=== PATIENT | female | born 1975 | race American Indian/Alaskan Native ===

== ENCOUNTER 2017-05-12 03:16 | Emergency (ER) | payer OTHER ==
[2017-05-12] MEDS ORDERED: NACL 0.9% 1000 ML 1,000 ML IV ONE ×2 (12:34→13:27)
[2017-05-12] MEDS ORDERED: NACL 0.9% 1000 ML 1,000 ML ONE (12:43)
[2017-05-12 13:26] LABS: Basophils % (Auto) 0.3 % (0.0-1.8); Eosinophils % (Auto) 0.7 % (0.0-4.3); Hematocrit 41.3 % (30.3-42.9); Hemoglobin 13.9 gm/dl (10.1-14.3); Lymphocytes # (Auto) 0.9 K/mm3 (1.2-5.4); Lymphocytes % (Auto) 15.7 % (13.4-35.0); Mean Corpuscular HGB Conc 34 % (30-34); Mean Corpuscular Hemoglobin 31 pg (28-32); Mean Corpuscular Volume 93 fl (79-97); Monocytes # (Auto) 0.2 K/mm3 (0.0-0.8); Platelet Count 223 K/mm3 (140-440); Red Blood Count 4.47 M/mm3 (3.65-5.03); Red Cell Distribution Width 15.4 % (13.2-15.2)
[2017-05-12] MEDS ORDERED: MORPHINE IV ONE (13:27)
[2017-05-12] MEDS ORDERED: ZOFRAN IV ONE (13:27)
--- NOTE | 2017-05-12 13:33 | Emergency Department Report ---
ED Abdominal Pain HPI - General Chief Complaint: Abdominal Pain Stated Complaint: ABD PAIN Time Seen by Provider: 05/12/17 12:25 Source: patient Mode of arrival: Ambulatory Limitations: No Limitations - History of Present Illness Initial Comments: 41-year-old female with a past medical history of hypertension, hypothyroidism, ovarian cyst, and partial hysterectomy presents with complaints of crampy and sharp abdominal pain yesterday at noon. Pain caused her to double over and break out in a sweat. Pain seemed to subside until returning in the evening time after attempting to drink soup. Positive nausea with severe pain episodes without vomiting. No complaints of fever. Pain is continued to wax and wane while waiting in the ED to be evaluated. Severity scale (0 -10): 0 - Related Data Previous Rx's Medication Instructions Recorded Last Taken Type HYDROcodone/APAP 5-325 [Cypress 1 each PO ONCE #20 tablet 05/12/17 Unknown Rx 5-325 mg TAB] Nitrofurantoin Ma[place]/M-Cryst 100 mg PO Q12HR #10 capsule 05/12/17 Unknown Rx [Macrobid CAP] Ondansetron [Zofran Odt] 4 mg PO Q8HR PRN #20 tab.rapdis 05/12/17 Unknown Rx Allergies Allergy/AdvReac Type Severity Reaction Status Date / Time tetracycline Allergy Hives Verified 05/12/17 05:27 ED Review of Systems ROS: Stated complaint: ABD PAIN Other details as noted in HPI Comment: All other systems reviewed and negative Other: Constitutional: No fevers chills Eyes: No eye pain visual changes ENT: No ear pain or throat pain Neck: Denies pain Respiratory: Denies cough wheezing shortness of breath Cardiovascular: Denies chest pain, palpitations, syncope GI: as per hpi : Denies dysuria Musculoskeletal: Denies back pain, joint swelling Skin: Denies rash, lesions, erythema Neurologic: Denies headache, numbness, weakness Psychiatric: Denies suicidal ideation, hallucinations ED Past Medical Hx - Past Medical History Previous Medical History?: No Hx Hypertension: Yes Additional medical history: h/o ovarian cysts. Hypothyroidism - Surgical History Past Surgical History?: Yes Additional Surgical History: partial hysterectomy, ? - Social History Smoking Status: Never Smoker Substance Use Type: None - Medications Home Medications: Home Medications Medication Instructions Recorded Confirmed Last Taken Type HYDROcodone/APAP 5-325 [Cypress 1 each PO ONCE #20 tablet 05/12/17 Unknown Rx 5-325 mg TAB] Nitrofurantoin Ma[place]/M-Cryst 100 mg PO Q12HR #10 capsule 05/12/17 Unknown Rx [Macrobid CAP] Ondansetron [Zofran Odt] 4 mg PO Q8HR PRN #20 tab.rapdis 05/12/17 Unknown Rx ED Physical Exam - General Limitations: No Limitations - Other Other exam information: General: No limitations, patient is alert in no acute distress Head exam: Atraumatic, normocephalic Eyes exam: Normal appearance, nonicteric sclera ENT: Moist mucous membrane, normal oropharynx Neck exam: Normal inspection, full range of motion, no meningismus nontender Respiratory exam: Clear to auscultation bilateral, no wheezes, rales, crackles Cardiovascular: Normal rate and rhythm, normal heart sounds Abdomen: Soft, nondistended, mild upper abdominal tenderness on exam. Normal bowel sounds. No rebound or guarding Extremity: Full range of motion normal inspection no deformity Back: Normal Inspection, full range of motion, no tenderness Neurologic: Alert, oriented x3, cranial nerves intact, no motor or sensory deficit Psychiatric: normal affect, normal mood Skin: Warm, dry, intact ED Course Vital Signs 05/12/17 05/12/17 05/12/17 05:19 12:17 12:31 Temperature 98.9 F Pulse Rate 94 H 111 H 106 H Respiratory 18 12 24 Rate Blood Pressure 162/127 144/104 O2 Sat by Pulse 99 96 Oximetry 05/12/17 05/12/17 05/12/17 13:01 13:31 14:00 Temperature Pulse Rate 107 H Respiratory 12 14 12 Rate Blood Pressure 144/104 144/104 118/78 O2 Sat by Pulse 97 96 93 Oximetry - Consultations Consultation #1: 05/12/[address] Mcneal. Outpatient follow-up encouraged to do LFT elevation ED Medical Decision Making - Lab Data Result diagrams: 05/12/17 12:29 05/12/17 12:29 Lab Results 05/12/17 05/12/17 05/12/17 Range/Units 12:29 12:29 12:30 WBC 5.9 (4.5-11.0) K/mm3 RBC 4.47 (3.65-5.03) M/mm3 Hgb 13.9 (10.1-14.3) gm/dl Hct 41.3 (30.3-42.9) % MCV 93 (79-97) fl MCH 31 (28-32) pg MCHC 34 (30-34) % RDW 15.4 H (13.2-15.2) % Plt Count 223 (140-440) K/mm3 Lymph % (Auto) 15.7 (13.4-35.0) % Maverick % (Auto) 4.0 (0.0-7.3) % Eos % (Auto) 0.7 (0.0-4.3) % Baso % (Auto) 0.3 (0.0-1.8) % Lymph # 0.9 L (1.2-5.4) K/mm3 Maverick # 0.2 (0.0-0.8) K/mm3 Eos # 0.0 (0.0-0.4) K/mm3 Baso # 0.0 (0.0-0.1) K/mm3 Seg Neutrophils % 79.3 H (40.0-70.0) % Seg Neutrophils # 4.7 (1.8-7.7) K/mm3 Sodium 139 (137-145) mmol/L Potassium 3.6 (3.6-5.0) mmol/L Chloride 99.1 (98-107) mmol/L Carbon Dioxide 27 (22-30) mmol/L Anion Gap 17 mmol/L BUN 10 (7-17) mg/dL Creatinine 0.7 (0.7-1.2) mg/dL Estimated GFR > 60 ml/min BUN/Creatinine Ratio 14 % Glucose 140 H (65-100) mg/dL Calcium 9.0 (8.4-10.2) mg/dL Total Bilirubin 0.70 (0.1-1.2) mg/dL AST 501 H (5-40) units/L ALT 673 H (7-56) units/L Alkaline Phosphatase 124 (35-129) units/L Total Protein 7.3 (6.3-8.2) g/dL Albumin 4.4 (3.9-5) g/dL Albumin/Globulin Ratio 1.5 % Lipase (13-60) units/L Urine Color K[place] (Yellow) Urine Turbidity Clear (Clear) Urine pH 5.0 (5.0-7.0) Ur Specific [place] 1.029 (1.003-1.030) Urine Protein 100 mg/dl (Negative) mg/dL Urine Glucose (UA) Neg (Negative) mg/dL Urine Ketones Tr (Negative) mg/dL Urine Blood Neg (Negative) Urine Nitrite Neg (Negative) Urine Bilirubin Neg (Negative) Urine Urobilinogen 2.0 (<2.0) mg/dL Ur Leukocyte Esterase Tr (Negative) Urine WBC (Auto) 21.0 H (0.0-6.0) /HPF Urine RBC (Auto) 22.0 (0.0-6.0) /HPF U Epithel Cells (Auto) 27.0 H (0-13.0) /HPF Urine Bacteria (Auto) 1+ (Negative) /HPF Urine Mucus 3+ /HPF Hepatitis A IgM Ab (NonReactive) Hep Bs Antigen (Negative) Hep B Core IgM Ab (NonReactive) Hepatitis C Antibody (NonReactive) 05/12/17 05/12/17 Range/Units 13:28 Unknown WBC (4.5-11.0) K/mm3 RBC (3.65-5.03) M/mm3 Hgb (10.1-14.3) gm/dl Hct (30.3-42.9) % MCV (79-97) fl MCH (28-32) pg MCHC (30-34) % RDW (13.2-15.2) % Plt Count (140-440) K/mm3 Lymph % (Auto) (13.4-35.0) % Maverick % (Auto) (0.0-7.3) % Eos % (Auto) (0.0-4.3) % Baso % (Auto) (0.0-1.8) % Lymph # (1.2-5.4) K/mm3 Ma[place]ick # (0.0-0.8) K/mm3 Eos # (0.0-0.4) K/mm3 Baso # (0.0-0.1) K/mm3 Seg Neutrophils % (40.0-70.0) % Seg Neutrophils # (1.8-7.7) K/mm3 Sodium (137-145) mmol/L Potassium (3.6-5.0) mmol/L Chloride (98-107) mmol/L Carbon Dioxide (22-30) mmol/L Anion Gap mmol/L BUN (7-17) mg/dL Creatinine (0.7-1.2) mg/dL Estimated GFR ml/min BUN/Creatinine Ratio % Glucose (65-100) mg/dL Calcium (8.4-10.2) mg/dL Total Bilirubin (0.1-1.2) mg/dL AST (5-40) units/L ALT (7-56) units/L Alkaline Phosphatase (35-129) units/L Total Protein (6.3-8.2) g/dL Albumin (3.9-5) g/dL Albumin/Globulin Ratio % Lipase 23 (13-60) units/L Urine Color (Yellow) Urine Turbidity (Clear) Urine pH (5.0-7.0) Ur Specific [place] (1.003-1.030) Urine Protein (Negative) mg/dL Urine Glucose (UA) (Negative) mg/dL Urine Ketones (Negative) mg/dL Urine Blood (Negative) Urine Nitrite (Negative) Urine Bilirubin (Negative) Urine Urobilinogen (<2.0) mg/dL Ur Leukocyte Esterase (Negative) Urine WBC (Auto) (0.0-6.0) /HPF Urine RBC (Auto) (0.0-6.0) /HPF U Epithel Cells (Auto) (0-13.0) /HPF Urine Bacteria (Auto) (Negative) /HPF Urine Mucus /HPF Hepatitis A IgM Ab Non-reactive (NonReactive) Hep Bs Antigen Non-reactive (Negative) Hep B Core IgM Ab Non-reactive (NonReactive) Hepatitis C Antibody Non-reactive (NonReactive) - Radiology Data Radiology results: report reviewed CT abd and pelvis IV contrast: Fatty liver, mild rotation of the right kidney. Probable bilateral renal cysts. Suspected fibroid uterus. No acute bowel findings. - Medical Decision Making Pain improved with ED treatment. Discharge home on pain medication and nausea medication. No acute findings on CT. Incidental fatty liver. Follow-up with GI will be recommended. Urine WBC count increase in a lot of epithelial cells so likely a contaminant. pt patient will be covered with Macrobid. - Differential Diagnosis pancreatitis, biliary colic, diverticulitis, renal colic Critical Care Time: No Critical care attestation.: If time is entered above; I have spent that time in minutes in the direct care of this critically ill patient, excluding procedure time. ED Disposition Clinical Impression: Abdominal pain, LFT elevation, Fatty liver, Urine WBC increased Disposition: DC-01 TO HOME OR SELFCARE Is pt being admited?: No Does the pt Need Aspirin: No Condition: Stable Instructions: Abdominal Pain (ED), Non-Alcoholic Fatty Liver Disease (ED), Urinary Tract Infection in Women (ED) Additional Instructions: Take the medication as needed for pain. Follow up with a GI doctor or your primary care doctor. Return if symptoms worsen. Prescriptions: HYDROcodone/APAP 5-325 [Cypress 5-325 mg TAB] 1 each PO ONCE #20 tablet Nitrofurantoin Ma[place]ick/M-Cryst [Macrobid CAP] 100 mg PO Q12HR #10 capsule Ondansetron [Zofran Odt] 4 mg PO Q8HR PRN #20 tab.rapdis PRN Reason: Nausea And Vomiting Referrals: ABY MALIK MD [Primary Care Provider] - 3-5 Days ARNOLDO MCNEAL MD [Staff Physician] - 2-3 Days () Time of Disposition: 16:04
[2017-05-12 13:41] LABS: Alanine Aminotransferase 673 units/L (7-56); Albumin 4.4 g/dL (3.9-5); BUN/Creatinine Ratio 14; Blood Urea Nitrogen 10 mg/dL (7-17); Hemolysis Index 6
[2017-05-12 14:08] LABS: Bacteria,Urine 1+ /HPF (Negative); Bilirubin,Urine NEG (Negative); Blood,Urine NEG (Negative); Color,Urine Amber (Yellow); Mucus,Urine 3+ /HPF; Nitrite,Urine NEG (Negative)
--- NOTE | 2017-05-12 15:11 | Cat Scan Report ---
FINAL REPORT EXAM: CT ABDOMEN PELVIS W CON HISTORY: upper and llq abd pain, nausea TECHNIQUE: CT of the abdomen and pelvis with IV contrast. Coronal and sagittal reconstructed imaging provided. PRIORS: None currently available. FINDINGS: ABDOMEN: Linear scarring discoid subsegmental atelectasis at both lung bases. Heart size is within normal limits. No pericardial effusion. Fatty liver. No suspicious lesions or enhancement. Cyst or hemangioma adjacent to the gallbladder fossa on series 3:72 measures 7.7 mm. With Gallbladder, stomach, spleen, pancreas, and adrenals are unremarkable. Kidneys: Symmetrical cortical enhancement. No hydronephrosis. Subcentimeter hypodensities in both kidneys statistically likely represent cysts but are too small to accurately characterize. Malrotation of the right kidney. There is no abdominal aortic aneurysm. IVC is unremarkable. There is no periaortic or retroperitoneal adenopathy or mass. [id number] stool. No wall thickening or inflammatory changes. Terminal ilium is unremarkable. Appendix is normal. Small bowel loops are unremarkable. No obstructive pattern. No free air. No free fluid. Mesentery is unremarkable. Fat-containing umbilical hernia without strangulation. PELVIS: Heterogeneous lobulated contour to the uterus may represent a fibroid. Bladder is unremarkable. There is no pelvic mass or adenopathy. Inguinal regions are unremarkable. Bones: No suspicious osseous lesions on this limited examination of the skeleton. Metastatic disease better evaluated with bone scan. IMPRESSION: Fatty liver. Probable cyst or hemangioma near the gallbladder fossa. Mild rotation of the right kidney. Probable bilateral renal cysts. Suspect fibroid uterus. Otherwise no acute bowel findings.
[2017-05-12 15:14] LABS: Hepatitis A Antibody IgM Non-Reactive (NonReactive); Hepatitis B Core IgM Non-Reactive (NonReactive); Hepatitis B Surface Antigen Non-Reactive (Negative); Hepatitis C Virus Antibody Non-Reactive (NonReactive)
[2017-05-12] MEDS ORDERED: NORCO 5/325 PO ONE (16:03)
[2017-05-12 16:58] VITALS: BP 147/98
[2017-05-12] MEDS ORDERED: INDERAL PO ONE (17:00)
== END 2017-05-12 17:30 | disposition home or self-care (01) ==
LOC: ED 03:16
DX: K76.0 Fatty (change of) liver, not elsewhere classified (principal); R79.89 Other specified abnormal findings of blood chemistry; I10 Essential (primary) hypertension; Z90.710 Acquired absence of both cervix and uterus; E03.9 Hypothyroidism, unspecified; Z88.1 Allergy status to other antibiotic agents
CPT/HCPCS: 36415; 74177; 80053; 80074; 81001; 83690; 85025; 96361; 96374; 96375; 99284; J2270; J2405; J7030; Q9967